=== PATIENT | female | born 1960 | race Two or more races ===

== ENCOUNTER 2023-01-19 05:30 | Day surgery (SDC) | payer OTHER ==
[~2023-01-19 05:30] MED LIST: ASPIR 8181 MG PO; INTEGRA F CAPS1 EACH PO
[2023-01-19] MEDS ORDERED: PERCOCET 5-3251 EACH PO (09:00)
[2023-01-19] MEDS ORDERED: RECTICARE30 GM TOP (09:01)
== END 2023-01-19 14:20 | disposition home or self-care (01) ==
LOC: CIR.AMB 05:30
PROVIDERS: ATTEND Surgery
DX: K64.3 Fourth degree hemorrhoids (principal); K64.4 Residual hemorrhoidal skin tags; K62.5 Hemorrhage of anus and rectum; Z20.822 Contact with and (suspected) exposure to COVID-19; E78.5 Hyperlipidemia, unspecified

== ENCOUNTER 2023-02-09 02:49 | Inpatient (IN) | payer OTHER ==
[~2023-02-09] VITALS: Ht 152.4 cm; Wt 62.6 kg
[~2023-02-09 02:49] MED LIST changes: +PERCOCET 5-3251 EACH PO; +RECTICARE30 GM TOP
[2023-02-09] MEDS ORDERED: LIPITOR20 MG (03:17)
[2023-02-09] MEDS ORDERED: TRAMADOL HCL E100 M1 (03:17)
--- NOTE | 2023-02-09 03:19 | NUR ---
PACIENTE ALERTA Y ORIENTADA X3. REFIERE VENIR POR QUE DESDE LAS 8:00PM DE CASANDRA ESTA CON SANGRADO RECTAL POR HEMORROIDES. REFIERE EL COLOR DEL SANGRADO ES LOPEZ BRILLANTE CON COAGULOS DE [place].
--- NOTE | 2023-02-09 04:13 | NUR ---
PACIENTE ALERTA Y ORIENTADA X 3 SE LE CODY MUESTRAS DE [place] SE CODY MEDIDAS ASEPTICA. SE ADM MEDICAMENTOS POR ORDEN MEDICA Y SE ORIENTA SOBRE USO Y EFCTO PACIENTE REFIERE ENTENDER. SE ABHIJEET EN CAMA CON TIMBRE ASECIBLE Y BARRANDAS ELEVADAS.
--- NOTE | 2023-02-09 07:43 | NUR ---
SE RECIBE PTE EN EL AREA DE OBSERVACION EN SERENA CON BARANDAS ELEVADA Y TIMBRE ACCESIBLE, NO PRESENTA DOLOR AL MOMENTO, PTE ALERTA Y ORIENTADO POR 3 NO PRESENTA DOLOR AL MOMENTO PTE SE MANTIENE EN OBSERVACION Y BAJO TRATAMIENTO EN ESPERA DEL DR SUERO
[2023-02-11] MEDS ORDERED: INTEGRA F CAPS1 EACH PO (08:16)
[2023-02-11] MEDS ORDERED: COLACE100 MG PO (08:17)
[2023-02-11] MEDS ORDERED: CYMBALTA60 MG PO (08:17)
== END 2023-02-11 11:25 | disposition home or self-care (01) | DRG 379 ==
LOC: ER 02:49 → SEC-K 10:16 → SURH 10:16
PROVIDERS: ADMIT Surgery; ATTEND Surgery
DX: K62.5 Hemorrhage of anus and rectum (principal); D64.9 Anemia, unspecified; Z20.822 Contact with and (suspected) exposure to COVID-19